=== PATIENT | male | born 1960 | race African-American/Black ===

== ENCOUNTER → 2017-12-10 | Outpatient (CLI) | payer OTHER ==
[~2017-12-10] MED LIST: AMOXICILLIN 8751 TAB PO; CEPHALEXIN500 M1 PO; HYDROCO/APAP TAB 7.5 PO; LORTAB 7.5/5001 TAB PO; NORCO 325 MG-51 TAB PO; NORCO PO; ZESTRIL 10MG10 MG PO
== END ==
LOC: COL.RAD 07:44
DX: M17.12 Unilateral primary osteoarthritis, left knee (principal)

== ENCOUNTER 2017-12-16 14:07 | Outpatient (RCR) | payer OTHER | END 2017-12-17 09:32 | LOC: WSOH 14:07 | DX: M17.11 Unilateral primary osteoarthritis, right knee (principal); Z96.651 Presence of right artificial knee joint; Z88.6 Allergy status to analgesic agent; Z87.891 Personal history of nicotine dependence; X50.1XXA Overexertion from prolonged static or awkward postures, initial encounter; Y99.0 Civilian activity done for income or pay ==

== ENCOUNTER 2018-10-20 13:10 | Outpatient (RCR) | payer OTHER | END 2019-01-17 15:39 | disposition home or self-care (01) | LOC: WSOH 13:10 | DX: S80.02XA Contusion of left knee, initial encounter (principal); M17.12 Unilateral primary osteoarthritis, left knee; M25.562 Pain in left knee; Z96.651 Presence of right artificial knee joint; Z79.899 Other long term (current) drug therapy; W00.0XXA Fall on same level due to ice and snow, initial encounter; Y93.01 Activity, walking, marching and hiking; Y92.219 Unspecified school as the place of occurrence of the external cause; Y99.0 Civilian activity done for income or pay ==

== ENCOUNTER → 2019-06-20 | Outpatient (CLI) | payer BC | LOC: COL.VAS 10:45 | DX: M79.89 Other specified soft tissue disorders (principal); Z96.652 Presence of left artificial knee joint ==

== ENCOUNTER → 2021-02-05 | Outpatient (CLI) | payer BC ==
[~2021-02-05] MED LIST changes: +BACTRIM DS 8001 TAB PO; +EC-NAPROSYN500 MG PO; +LOZOL 2.5M2.5 MG/TAB PO; +PERCOCET 325 MG1 TA2 PO; +WELLBUTRIN XL150 MG PO
== END ==
LOC: COL.RAD 09:20
DX: Z96.653 Presence of artificial knee joint, bilateral (principal); C61 Malignant neoplasm of prostate
CPT/HCPCS: A9503; Q9967

== ENCOUNTER → 2021-05-29 | Outpatient (CLI) | payer BC | LOC: COL.RAD 10:11 | DX: C61 Malignant neoplasm of prostate (principal); Z96.0 Presence of urogenital implants | CPT/HCPCS: Q9967 ==

== ENCOUNTER → 2021-07-04 | Outpatient (CLI) | payer BC | LOC: COL.LAB 14:16 | DX: C61 Malignant neoplasm of prostate (principal) ==